=== PATIENT | male | born 1980 | race Caucasian/White ===

== ENCOUNTER 2021-10-19 09:51 | Emergency (ER) | payer MEDICAID ==
[~2021-10-19] VITALS: Ht 167.6 cm; Wt 86.2 kg
[2021-10-19 10:00] VITALS: BP 145/104
--- NOTE | 2021-10-19 11:12 | NUR ---
Patient discharged to home in stable condition. Written and verbal after care instructions given. Patient verbalizes understanding of instruction.
== END 2021-10-19 11:12 | disposition home or self-care (01) ==
LOC: ER 10:02
DX: S62.624A Displaced fracture of middle phalanx of right ring finger, initial encounter for closed fracture (principal); E78.00 Pure hypercholesterolemia, unspecified; X58.XXXA Exposure to other specified factors, initial encounter; Y93.89 Activity, other specified; Y92.89 Other specified places as the place of occurrence of the external cause; Y99.8 Other external cause status
CPT/HCPCS: 73140-TC

== ENCOUNTER 2024-06-05 10:57 | Emergency (ER) | payer MEDICAID, OTHER ==
[~2024-06-05] VITALS: Ht 170.2 cm; Wt 88.5 kg
[2024-06-05 11:04] VITALS: TEMP 98.3
[2024-06-05] MEDS ORDERED: KETOROLAC TROMETHAMINE 15 MG/ML VIAL ONE (11:08)
[2024-06-05] MEDS: IV NS 0.9% 1,000 ML BAG IV ONE (11:16)
[2024-06-05] MEDS: KETOROLAC TROMETHAMINE 15 MG/ML VIAL IV ONE (11:17)
[2024-06-05 11:34] LABS: APPEARANCE,URINE CLEAR (CLEAR); BILIRUBIN,URINE NEGATIVE (NEGATIVE); BLOOD, URINE NEGATIVE Ery/uL (NEGATIVE); COLOR,URINE YELLOW (YELLOW); KETONES,URINE NEGATIVE (NEGATIVE); LEUKOCYTE ESTERASE ,URINE NEGATIVE (NEGATIVE); NITRITE, URINE NEGATIVE (NEGATIVE); PH,URINE 5.5 (5.0-8.0); PROTEIN,URINE NEGATIVE (NEGATIVE); UGLUCOSE NEGATIVE (NEGATIVE); UROBILINOGEN,URINE 0.2 EU/dL (0.2)
[2024-06-05 11:34] LABS: BASOPHILS % (AUTO) 0.2 % (0.0-2.0); EOSINOPHILS # (AUTO) 0.1 K/uL (0.0-0.7); EOSINOPHILS % (AUTO) 1.2 % (0.0-6.0); HEMATOCRIT 45 % (39-51); HEMOGLOBIN 15.4 g/dL (13.5-17.5); LYMPHOCYTES # (AUTO) 3.3 K/uL (0.8-4.8); LYMPHOCYTES % (AUTO) 37.3 % (20.0-44.0); MEAN CORPUSCULAR HEMOGLOBIN 28 PG (26.0-33.0); MEAN CORPUSCULAR HGB CONC 34 g/dl (31.0-36.0); MEAN CORPUSCULAR VOLUME 82 fL (80-96); MONOCYTES # (AUTO) 0.5 K/uL (0.1-1.30); MONOCYTES % (AUTO) 5.7 % (2.0-12.0); NEUTROPHILS # (AUTO) 4.9 K/uL (1.8-8.9); NEUTROPHILS % (AUTO) 55.6 % (43.0-81.0); PLATELET COUNT (AUTO) 246 K/uL (150-450); RED BLOOD CELL COUNT(AUTO) 5.43 MIL/uL (4.5-6.0); RED CELL DISTRIBUTION WIDTH 12.6 % (11.5-15.0); WHITE BLOOD COUNT (AUTO) 8.9 K/uL (4.3-11.0)
[2024-06-05 11:38] LABS: CALCIUM, SERUM 8.9 mg/dL (8.5-10.1); CREATININE 0.7 mg/dL (0.6-1.3); POTASSIUM 3.6 mmol/L (3.5-5.1)
[2024-06-05 11:45] LABS: BILIRUBIN,DIRECT 0.1 mg/dL (0.0-0.2); BILIRUBIN,TOTAL 0.4 mg/dL (0.2-1.0); TOTAL PROTEIN, SERUM 6.9 g/dL (6.4-8.2)
[2024-06-05] MEDS ORDERED: HYDR-4303 PO (12:24)
[2024-06-05] MEDS ORDERED: ONDA4TAB5 PO (12:24)
[2024-06-05] MEDS ORDERED: IBUP-1955 PO (12:24)
[2024-06-05] MEDS ORDERED: TAMS-12 PO (12:24)
[2024-06-05 12:47] VITALS: BP 135/85; O2SAT 98
== END 2024-06-05 12:45 | disposition home or self-care (01) ==
LOC: ER 11:00
DX: N20.0 Calculus of kidney (principal); R30.0 Dysuria; K76.0 Fatty (change of) liver, not elsewhere classified; E78.5 Hyperlipidemia, unspecified; Z79.899 Other long term (current) drug therapy
CPT/HCPCS: 99285; 74176; 96374; 96361; 85025; 80048; 83690; 80076; 81003; 36415; J1885; J7030

== ENCOUNTER 2024-08-12 17:44 | Emergency (ER) | payer OTHER ==
[~2024-08-12] VITALS: Ht 167.6 cm; Wt 90.7 kg
[~2024-08-12 17:44] MED LIST: HYDR-4303 PO; IBUP-1955 PO; ONDA4TAB5 PO; TAMS-12 PO
[2024-08-12] MEDS ORDERED: KETOROLAC TROMETHAMINE INJ 30 MG/ML VIAL ONE (18:14)
[2024-08-12] MEDS: KETOROLAC TROMETHAMINE 15 MG/ML VIAL IV ONE (18:27)
[2024-08-12 18:29] LABS: APPEARANCE,URINE CLEAR (CLEAR); BLOOD, URINE Trace-intact Ery/uL (NEGATIVE); LEUKOCYTE ESTERASE ,URINE Negative (NEGATIVE); UGLUCOSE Negative (NEGATIVE)
[2024-08-12 18:30] LABS: ADD URINE CULTURE NO; NITRITE, URINE NEGATIVE (NEGATIVE); SQUAMOUS EPITHELIAL CELL,UR Rare /HPF (None Seen)
[2024-08-12 18:44] LABS: PLATELET COUNT (AUTO) 245 K/uL (150-450); RED BLOOD CELL COUNT(AUTO) 5.33 MIL/uL (4.5-6.0); RED CELL DISTRIBUTION WIDTH 13.1 % (11.5-15.0); WHITE BLOOD COUNT (AUTO) 11.2 K/uL (4.3-11.0)
[2024-08-12 18:51] LABS: CALCIUM, SERUM 8.7 mg/dL (8.5-10.1); CREATININE 1.0 mg/dL (0.6-1.3); SODIUM SERUM 143.0 mmol/L (136-145); UREA NITROGEN, BLOOD 28.0 mg/dL (7-18)
[2024-08-12 18:56] LABS: TOTAL PROTEIN, SERUM 7.2 g/dL (6.4-8.2)
[2024-08-12 19:17] LABS: ASPARTATE AMINOTRANSFERASE 25.0 U/L (15-37)
[2024-08-12 19:38] VITALS: BP 131/79; TEMP 97.9; O2SAT 97
== END 2024-08-12 19:38 | disposition home or self-care (01) ==
LOC: ER 17:50
DX: R39.11 Hesitancy of micturition (principal); R31.9 Hematuria, unspecified; E78.5 Hyperlipidemia, unspecified; E86.0 Dehydration; Z87.442 Personal history of urinary calculi
CPT/HCPCS: 99285; 74176; 96374; 85025; 80048; 80076; 81001; 36415; J1885